=== PATIENT | female | born 1950 | race Caucasian/White ===

== ENCOUNTER → 2016-11-19 | Outpatient (REF) | payer MEDICARE, OTHER ==
[~2016-11-19] MED LIST: BENT10CA PO; EFFE150C PO; LASI20TA PO; LOSA25TA8 PO; MELO15TA4 PO; MIRA3350 PO; NORCOTAB PO; NUCY50TA9 PO; REST0.05 OP; RISP1TAB3 PO; SOMA350T PO; TOPA25TA10 PO
[2016-11-19 12:48] LABS: ALBUMIN 3.7 GM/DL (3.2-5.2); ALBUMIN/GLOBULIN RATIO 1.48 (1.00-1.93); BILIRUBIN,TOTAL 0.5 MG/DL (0.2-1.0); CREATININE FOR GFR 1.06 MG/DL (0.55-1.02); FREE T4 1.01 NG/DL (0.76-1.46); GLOMERULAR FILTRATION RATE 55.2 (>45); POTASSIUM SERUM 4.5 MEQ/L (3.5-5.1); TOTAL PROTEIN 6.2 GM/DL (6.4-8.2)
[2016-11-19 12:50] LABS: MEAN CORPUSCULAR HEMOGLOBIN 31.5 pg (27.0-33.0); MEAN CORPUSCULAR HGB CONC 34.2 g/dl (32.0-36.5); MEAN CORPUSCULAR VOLUME 92.1 fl (80.0-96.0); WHITE BLOOD COUNT 6.6 K/mm3 (4.0-10.0)
[2016-11-21 08:06] LABS: TOPIRAMATE LEVEL None Detected ug/mL (2.0-25.0)
== END ==
LOC: M SFHCCLAY 07:39
PROVIDERS: ATTEND Family Medicine
DX: Z00.00 Encounter for general adult medical examination without abnormal findings (principal); K21.0 Gastro-esophageal reflux disease with esophagitis; I10 Essential (primary) hypertension; F32.9 Major depressive disorder, single episode, unspecified; E78.00 Pure hypercholesterolemia, unspecified

== ENCOUNTER → 2017-01-27 | Outpatient (REF) | payer MEDICARE, OTHER | LOC: M SFHCCLAY 12:24 | PROVIDERS: ATTEND Family Medicine | DX: R25.2 Cramp and spasm (principal) ==

== ENCOUNTER → 2017-06-15 | Outpatient (CLI) | payer MEDICARE, OTHER ==
[~2017-06-15] MED LIST changes: +NUCY50TA6 PO; -NUCY50TA9 PO; +TOPA1TAB PO; -TOPA25TA10 PO
[2017-06-15 17:28] LABS: URIC ACID 4.7 MG/DL (2.6-6.0)
[2017-06-18 00:07] LABS: Lyme Disease IgG/IgM Antibodie <0.91 ISR (0.00-0.90); Lyme Disease IgM Ab Quantitati <0.80 index (0.00-0.79); SJOGREN'S ANTI SS-A <0.2 AI (0.0-0.9); SJOGREN'S ANTI SS-B <0.2 AI (0.0-0.9)
== END ==
LOC: M WUC 12:29
PROVIDERS: ATTEND Physician Assistant Surgical
DX: M25.542 Pain in joints of left hand (principal)

== ENCOUNTER → 2017-07-01 | Outpatient (REF) | payer MEDICARE, OTHER ==
[2017-07-01 14:17] LABS: FREE T4 1.02 NG/DL (0.76-1.46)
[2017-07-03 00:07] LABS: Lyme Disease IgG/IgM Antibodie <0.91 ISR (0.00-0.90); Lyme Disease IgM Ab Quantitati <0.80 index (0.00-0.79)
== END ==
LOC: M SFHCCLAY 10:19
PROVIDERS: ATTEND Family Medicine
DX: F32.9 Major depressive disorder, single episode, unspecified (principal); M19.90 Unspecified osteoarthritis, unspecified site

== ENCOUNTER → 2017-12-08 | Outpatient (CLI) | payer MEDICARE, OTHER | LOC: M CLY 10:26 | DX: M16.11 Unilateral primary osteoarthritis, right hip (principal); M25.751 Osteophyte, right hip; M70.61 Trochanteric bursitis, right hip | CPT/HCPCS: 73502; G0463 ==

== ENCOUNTER → 2017-12-22 | Outpatient (CLI) | payer MEDICARE, OTHER ==
[2017-12-22 13:34] LABS: BASO % 0.4 % (0.0-1.0); EOS # 0.1 10^3/uL (0.0-0.50); EOS % 2.1 % (0.0-3.0); HEMOGLOBIN 15.9 g/dl (12.0-16.0); IMMATURE GRANULOCYTE % 0.3 % (0-3.0); LYMPH # 0.7 10^3/uL (1.5-4.5); LYMPH % 10.4 % (24.0-44.0); MEAN CORPUSCULAR HEMOGLOBIN 32.3 pg (27.0-33.0); MEAN CORPUSCULAR HGB CONC 34.6 g/dl (32.0-36.5); MEAN CORPUSCULAR VOLUME 93.3 fl (80.0-96.0); MONO # 0.7 10^3/uL (0.0-0.8); MONO % 9.7 % (0.0-5.0); NEUTROPHILS # 5.2 10^3/uL (1.8-7.7); NEUTROPHILS % 77.1 % (36.0-66.0); PLATELET COUNT, AUTOMATED 180 10^3/uL (150-450); RED BLOOD COUNT 4.93 10^6/uL (4.00-5.40); RED CELL DISTRIBUTION WIDTH 11.9 % (11.5-14.5); WHITE BLOOD COUNT 6.7 10^3/uL (4.0-10.0)
[2017-12-22 14:24] LABS: ALBUMIN 3.9 GM/DL (3.2-5.2); ALBUMIN/GLOBULIN RATIO 1.26 (1.00-1.93); ALKALINE PHOSPHATASE 69 U/L (45-117); ALT/SGPT 32 U/L (12-78); ANION GAP 8 MEQ/L (8-16); AST/SGOT 29 U/L (7-37); BILIRUBIN,TOTAL 0.6 MG/DL (0.2-1.0); BLOOD UREA NITROGEN 18 MG/DL (7-18); CALCIUM LEVEL 9.1 MG/DL (8.8-10.2); CARBON DIOXIDE LEVEL 29 MEQ/L (21-32); CHLORIDE LEVEL 106 MEQ/L (98-107); CREATININE FOR GFR 0.82 MG/DL (0.55-1.30); GLOMERULAR FILTRATION RATE > 60.0 (>45); GLUCOSE, FASTING 98 MG/DL (70-100); POTASSIUM SERUM 3.9 MEQ/L (3.5-5.1); SODIUM LEVEL 143 MEQ/L (136-145)
== END ==
LOC: M ADAMS 10:17
DX: R11.2 Nausea with vomiting, unspecified (principal)
CPT/HCPCS: 80053

== ENCOUNTER → 2018-04-25 | Outpatient (REF) | payer MEDICARE, OTHER ==
[2018-04-29 00:12] LABS: G6PD2 4.79 x10E6/uL (3.77-5.28); G6PD3 302 (146-376)
== END ==
LOC: M LABDRWAD 09:02
DX: Z79.899 Other long term (current) drug therapy (principal)
CPT/HCPCS: 82955

== ENCOUNTER 2018-07-18 09:14 | Day surgery (SDC) | payer MEDICARE, OTHER ==
[2018-07-18] MEDS: NS 1,000 ML IV (07:00)
[~2018-07-18 09:14] MED LIST changes: -BENT10CA PO; -EFFE150C PO; -LASI20TA PO; -LOSA25TA8 PO; -MELO15TA4 PO; -MIRA3350 PO; -NORCOTAB PO; +NS 1,000 ML IV; -NUCY50TA6 PO; -REST0.05 OP; -RISP1TAB3 PO; -SOMA350T PO; -TOPA1TAB PO
[2018-07-18] MEDS ORDERED: LIDOCAINE 2% INJ 100 MG/5 ML SDV (FOR ANES.) As Ordered (10:52)
[2018-07-18] MEDS ORDERED: PROPOFOL 500 MG/50 ML VIAL As Ordered (10:52)
== END 2018-07-18 12:05 | disposition home or self-care (01) ==
LOC: M OPP 09:14
DX: Z12.11 Encounter for screening for malignant neoplasm of colon (principal); Z83.71 Family history of colonic polyps; K64.0 First degree hemorrhoids; I10 Essential (primary) hypertension; K58.9 Irritable bowel syndrome, unspecified; K21.9 Gastro-esophageal reflux disease without esophagitis; R12 Heartburn; M32.9 Systemic lupus erythematosus, unspecified; F41.9 Anxiety disorder, unspecified; F32.9 Major depressive disorder, single episode, unspecified; R56.9 Unspecified convulsions; Z97.8 Presence of other specified devices; Z78.0 Asymptomatic menopausal state; Z85.828 Personal history of other malignant neoplasm of skin; Z88.8 Allergy status to other drugs, medicaments and biological substances; Z88.1 Allergy status to other antibiotic agents; Z88.2 Allergy status to sulfonamides; Z88.0 Allergy status to penicillin; Z79.899 Other long term (current) drug therapy; Z80.3 Family history of malignant neoplasm of breast; Z87.891 Personal history of nicotine dependence; Z80.8 Family history of malignant neoplasm of other organs or systems
CPT/HCPCS: G0105

== ENCOUNTER → 2018-07-27 | Outpatient (CLI) | payer MEDICARE, OTHER | LOC: M EKG 13:13 | DX: G47.419 Narcolepsy without cataplexy (principal) | CPT/HCPCS: 93225 ==

== ENCOUNTER → 2018-08-08 | Outpatient (CLI) | payer MEDICARE, OTHER | LOC: M SLEEP 20:00 | DX: G47.30 Sleep apnea, unspecified (principal) | CPT/HCPCS: 95810 ==

== ENCOUNTER → 2018-08-11 | Outpatient (CLI) | payer OTHER, MEDICARE ==
[2018-08-12 10:44] LABS: RUBELLA IgG QUALITATIVE IMMUNE (IMMUNE)
[2018-08-13 08:11] LABS: MUMPS VIRUS IgG ANTIBODY 89.3 AU/mL (Immune >10.9)
[2018-08-13 08:11] LABS: RUBEOLA IgG ANTIBODY >300.0 AU/mL (Immune >29.9)
== END ==
LOC: M WUC 16:54
DX: Z02.1 Encounter for pre-employment examination (principal)
CPT/HCPCS: 86762

== ENCOUNTER → 2018-09-02 | Outpatient (REF) | payer MEDICARE, OTHER ==
[2018-09-02 19:34] LABS: APPEARANCE, URINE HAZY (CLEAR); BACTERIA, URINE AUTO NEGATIVE (NEGATIVE); BILIRUBIN, URINE AUTO NEGATIVE (NEGATIVE); BLOOD, URINE BLOOD NEGATIVE (NEGATIVE); COLOR, URINE YELLOW (YELLOW); GLUCOSE, URINE (UA) AUTO NEGATIVE (NEGATIVE); KETONE, URINE AUTO NEGATIVE (NEGATIVE); LEUKOCYTE ESTERASE, URINE AUTO NEGATIVE (NEGATIVE); MUCUS, URINE SMALL (NEGATIVE); NITRITE, URINE AUTO NEGATIVE (NEGATIVE); PROTEIN, URINE AUTO NEGATIVE (NEGATIVE); RBC, URINE AUTO 4 /HPF (0-3); SPECIFIC GRAVITY URINE AUTO 1.017 (1.002-1.035); SQUAMOUS EPITHELIAL CELL UR AU 0 /HPF (0-6); UROBILINOGEN, URINE AUTO 0.2 mg/dL (0.0-2.0); WBC, URINE AUTO 5 /HPF (0-3)
== END ==
LOC: M SFHCADAM 13:27
DX: R32 Unspecified urinary incontinence (principal); Z23 Encounter for immunization
CPT/HCPCS: 81001

== ENCOUNTER → 2018-09-17 | Outpatient (CLI) | payer MEDICARE, OTHER | LOC: M SLEEP 19:48 | DX: G47.33 Obstructive sleep apnea (adult) (pediatric) (principal) | CPT/HCPCS: 95811 ==

== ENCOUNTER → 2018-11-03 | Outpatient (REF) | payer MEDICARE, OTHER ==
[~2018-11-03] MED LIST changes: +BENT10CA PO; +CYMB1CAP5 PO; +EFFE150C2 PO; +FISH7.5C PO; +GABA-843 PO; +LASI20TA3 PO; +LOSA25TA14 PO; +MAGN500C PO; +MELO15TA28 PO; +MIRA3350 PO; +MULT1TAB10 PO; +NORCOTAB PO; -NS 1,000 ML IV; +NUCY50TA19 PO; +PREV1CAP PO; +PROZ40CA PO; +REST0.05 OP; +RISP1TAB3 PO; +SOMA350T PO; +TOPA1TAB PO; +VITA10002 PO; +VITA100067 PO
[2018-11-03 19:57] LABS: BASO # 0.1 10^3/uL (0.0-0.2); BASO % 1.1 % (0.0-1.0); EOS # 0.1 10^3/uL (0.0-0.50); EOS % 1.6 % (0.0-3.0); HEMATOCRIT 45.5 % (36.0-47.0); MONO # 0.7 10^3/uL (0.0-0.8); NEUTROPHILS # 3.8 10^3/uL (1.8-7.7); NEUTROPHILS % 65.9 % (36.0-66.0); PLATELET COUNT, AUTOMATED 238 10^3/uL (150-450); RED BLOOD COUNT 4.84 10^6/uL (4.00-5.40); WHITE BLOOD COUNT 5.7 10^3/uL (4.0-10.0)
[2018-11-03 19:59] LABS: BLOOD UREA NITROGEN 15 MG/DL (7-18); CARBON DIOXIDE LEVEL 30 MEQ/L (21-32); CHLORIDE LEVEL 104 MEQ/L (98-107); CREATININE FOR GFR 0.97 MG/DL (0.55-1.30); GLOMERULAR FILTRATION RATE > 60.0 (>45); GLUCOSE, FASTING 79 MG/DL (70-100); POTASSIUM SERUM 4.8 MEQ/L (3.5-5.1); SODIUM LEVEL 141 MEQ/L (136-145)
== END ==
LOC: M LABDRWAD 19:19 → M LAB REF 19:19
PROVIDERS: ATTEND Physician Assistant
DX: R53.83 Other fatigue (principal)

== ENCOUNTER → 2019-01-14 | Outpatient (CLI) | payer MEDICARE, OTHER ==
--- NOTE | 2019-01-14 12:34 | REP ---
Clinical: Left knee pain. Technique: AP, lateral, bilateral oblique and sunrise views of the left knee. Findings: Degenerative changes include cortical irregularity to the femoral condyles and chondrocalcinosis. Subtle spurring along the patellar margin is also appreciated. No acute fracture dislocation. No effusion. Impression: Moderate tricompartmental degenerative changes. Electronically Signed by Jose Antonio Donato MD 01/14/2019 12:26 P
== END ==
LOC: M ADAMS 12:07
PROVIDERS: ATTEND Physician Assistant
DX: M17.12 Unilateral primary osteoarthritis, left knee (principal)

== ENCOUNTER → 2019-01-18 | Outpatient (CLI) | payer MEDICARE, OTHER ==
[~2019-01-18] MED LIST changes: +HYDR-3715 PO; -NORCOTAB PO
--- NOTE | 2019-01-18 13:36 | REP ---
SOFT-TISSUE ULTRASOUND LEFT POSTERIOR POPLITEAL SOFT TISSUES: HISTORY: Posterior knee pain times 1 week. FINDINGS: Scanning of the posterior popliteal soft tissue show no evidence of abnormal fluid collection, aneurysm, mass, or adenopathy. Popliteal vein is patent. IMPRESSION: Negative posterior popliteal soft tissue ultrasound. Electronically Signed by Román Arias MD 01/18/2019 02:56 P
== END ==
LOC: M RAD 11:06
PROVIDERS: ATTEND Physician Assistant
DX: M25.562 Pain in left knee (principal)

== ENCOUNTER → 2019-02-27 | Outpatient (REF) | payer MEDICARE, OTHER ==
[2019-02-27 13:38] LABS: CALCIUM LEVEL 9.1 MG/DL (8.8-10.2); CREATININE FOR GFR 1.05 MG/DL (0.55-1.30); GLOMERULAR FILTRATION RATE 55.5 (>45); POTASSIUM SERUM 4.4 MEQ/L (3.5-5.1)
== END ==
LOC: M LABDRWAD 12:19
PROVIDERS: ATTEND Internal Medicine Cardiovascular Disease
DX: I10 Essential (primary) hypertension (principal)

== ENCOUNTER → 2019-05-26 | Outpatient (REF) | payer MEDICARE, OTHER ==
[~2019-05-26] MED LIST changes: +CYAN100049 PO; -VITA10002 PO
[2019-05-26 13:04] LABS: CALCIUM LEVEL 9.4 MG/DL (8.8-10.2); CREATININE FOR GFR 1.08 MG/DL (0.55-1.30); GLOMERULAR FILTRATION RATE 53.7 (>45); MAGNESIUM LEVEL 2.1 MG/DL (1.8-2.4)
== END ==
LOC: M SFHCADAM 09:20
PROVIDERS: ATTEND Physician Assistant
DX: N18.3 Chronic kidney disease, stage 3 (moderate) (principal); R60.9 Edema, unspecified
CPT/HCPCS: 80048; 83735; G0463

== ENCOUNTER → 2019-07-12 | Outpatient (CLI) | payer MEDICARE, OTHER ==
--- NOTE | 2019-07-12 10:55 | REP ---
CT BRAIN WITHOUT CONTRAST: HISTORY: Syncope. Collapse. Comparison MRI study of the brain is from May 25, 2008. CT FINDINGS: The digital lateral band director and bone window settings demonstrate mild hyperostosis frontalis interna which is a normal variant. The bony calvarium is intact. No significant vascular calcification is seen. On soft tissue window settings, the lateral, third and fourth ventricles are normal in size and position. There is no evidence of intracranial hemorrhage. No infarct or extra-axial fluid collection is seen. No mass lesion is observed. There are subtle foci of subcortical and periventricular white matter low density bilaterally. These are similar in distribution to the T2 hyperintense foci seen at the time of the 2008 MRI study. They are suggestive of demyelinating foci. There is no acute intracranial lesion. IMPRESSION: No acute intracranial abnormality. Subtle bilateral subcortical and periventricular white matter low density foci correlating with the prior MRI study and suggestive of demyelinating disease. Otherwise negative CT study of the brain. Electronically Signed by Román Arias MD 07/12/2019 11:13 A
--- NOTE | 2019-07-12 11:21 | REP ---
Bilateral carotid artery duplex ultrasound: Peak flow velocity analysis: RIGHT LEFT ICA Peak flow velocity cm/sec 83.5 97.1 ICA Diastolic flow velocity cm/sec 21.1 24.7 ICA/CCA Ratio 0.69 0.80 ECA Peak flow velocity cm/sec 104 64.5 CCA Peak flow velocity cm/sec 121 122 There is minimal atheromatous plaque in the bulbs bilaterally. The peak flow velocities are normal bilaterally. There is less than 50% luminal narrowing bilaterally. There is no stenosis on the right on the left. There is antegrade flow in the vertebral arteries bilaterally. Bilateral thyroid complex cysts are incidentally noted. Follow-up thyroid ultrasound might be considered. Impression: There is no stenosis on the right on the left. Consider follow-up thyroid ultrasound as discussed. Electronically Signed by Manuel Bae MD 07/12/2019 11:12 A
== END ==
LOC: M RAD 10:02
PROVIDERS: ATTEND Psychiatry & Neurology Neurology
DX: R55 Syncope and collapse (principal); G40.89 Other seizures; E04.2 Nontoxic multinodular goiter

== ENCOUNTER → 2019-07-26 | Outpatient (REF) | payer MEDICARE, OTHER ==
[2019-07-26 19:32] LABS: APPEARANCE, URINE CLEAR (CLEAR); BACTERIA, URINE AUTO NEGATIVE (NEGATIVE); BILIRUBIN, URINE AUTO NEGATIVE (NEGATIVE); BLOOD, URINE BLOOD NEGATIVE (NEGATIVE); COLOR, URINE STRAW (YELLOW); GLUCOSE, URINE (UA) AUTO NEGATIVE (NEGATIVE); KETONE, URINE AUTO NEGATIVE (NEGATIVE); LEUKOCYTE ESTERASE, URINE AUTO NEGATIVE (NEGATIVE); NITRITE, URINE AUTO NEGATIVE (NEGATIVE); PROTEIN, URINE AUTO NEGATIVE (NEGATIVE); RBC, URINE AUTO 0 /HPF (0-3); SPECIFIC GRAVITY URINE AUTO 1.006 (1.002-1.035); SQUAMOUS EPITHELIAL CELL UR AU 0 /HPF (0-6); UROBILINOGEN, URINE AUTO 0.2 mg/dL (0.0-2.0); WBC, URINE AUTO 0 /HPF (0-3)
[2019-07-26 19:34] LABS: HEMATOCRIT 40.1 % (36.0-47.0); HEMOGLOBIN 13.1 g/dl (12.0-15.5); MEAN CORPUSCULAR HEMOGLOBIN 31.6 pg (27.0-33.0); MEAN CORPUSCULAR HGB CONC 32.7 g/dl (32.0-36.5); MEAN CORPUSCULAR VOLUME 96.9 fl (80.0-96.0); PLATELET COUNT, AUTOMATED 218 10^3/uL (150-450); RED BLOOD COUNT 4.14 10^6/uL (4.00-5.40); WHITE BLOOD COUNT 4.9 10^3/uL (4.0-10.0)
[2019-07-26 20:11] LABS: ALBUMIN 3.9 GM/DL (3.2-5.2); BILIRUBIN,TOTAL 0.4 MG/DL (0.2-1.0); CALCIUM LEVEL 8.9 MG/DL (8.8-10.2); CREATININE FOR GFR 1.24 MG/DL (0.55-1.30); FREE T4 0.92 NG/DL (0.76-1.46); GLOMERULAR FILTRATION RATE 45.8 (>45); POTASSIUM SERUM 4.3 MEQ/L (3.5-5.1); THYROID STIMULATING HORMONE 0.885 uIU/ML (0.358-3.740); TOTAL PROTEIN 6.7 GM/DL (6.4-8.2)
== END ==
LOC: M SFHCADAM 15:27
PROVIDERS: ATTEND Physician Assistant
DX: N18.3 Chronic kidney disease, stage 3 (moderate) (principal); K21.0 Gastro-esophageal reflux disease with esophagitis; I12.9 Hypertensive chronic kidney disease with stage 1 through stage 4 chronic kidney disease, or unspecified chronic kidney disease; R60.0 Localized edema
CPT/HCPCS: 80053; 81001; 84439; 84443; 85027; G0463

== ENCOUNTER → 2019-11-03 | Outpatient (REF) | payer MEDICARE, OTHER | LOC: M LAB REF 09:26 | PROVIDERS: ATTEND Nurse Practitioner Family | DX: R30.0 Dysuria (principal) ==

== ENCOUNTER → 2020-02-09 | Outpatient (REF) | payer MEDICARE, OTHER ==
[2020-02-09 13:03] LABS: HEMATOCRIT 39.5 % (36.0-47.0); HEMOGLOBIN 13.2 g/dl (12.0-15.5); MEAN CORPUSCULAR HEMOGLOBIN 30.9 pg (27.0-33.0); MEAN CORPUSCULAR HGB CONC 33.4 g/dl (32.0-36.5); MEAN CORPUSCULAR VOLUME 92.5 fl (80.0-96.0); PLATELET COUNT, AUTOMATED 211 10^3/uL (150-450); RED BLOOD COUNT 4.27 10^6/uL (4.00-5.40); WHITE BLOOD COUNT 3.8 10^3/uL (4.0-10.0)
[2020-02-09 13:47] LABS: ALBUMIN 3.7 GM/DL (3.2-5.2); BILIRUBIN,TOTAL 0.4 MG/DL (0.2-1.0); CALCIUM LEVEL 9.1 MG/DL (8.8-10.2); CHOLESTEROL RISK RATIO 2.035 (<5); CREATININE FOR GFR 1.21 MG/DL (0.55-1.30); POTASSIUM SERUM 4.4 MEQ/L (3.5-5.1); TOTAL PROTEIN 6.4 GM/DL (6.4-8.2)
== END ==
LOC: M SFHCADAM 08:44
PROVIDERS: ATTEND Physician Assistant
DX: I12.9 Hypertensive chronic kidney disease with stage 1 through stage 4 chronic kidney disease, or unspecified chronic kidney disease (principal); R60.9 Edema, unspecified; N18.3 Chronic kidney disease, stage 3 (moderate); E78.00 Pure hypercholesterolemia, unspecified

== ENCOUNTER → 2020-04-05 | Outpatient (REF) | payer MEDICARE, OTHER ==
[2020-04-05 13:37] LABS: CALCIUM LEVEL 9.1 MG/DL (8.8-10.2); CREATININE FOR GFR 1.08 MG/DL (0.55-1.30); GLOMERULAR FILTRATION RATE 53.5 (>45); POTASSIUM SERUM 3.9 MEQ/L (3.5-5.1)
== END ==
LOC: M LABDRWAD 12:35
PROVIDERS: ATTEND Physical Medicine & Rehabilitation
DX: Z01.818 Encounter for other preprocedural examination (principal); I10 Essential (primary) hypertension; Z79.899 Other long term (current) drug therapy

== ENCOUNTER → 2020-04-06 | Outpatient (CLI) | payer MEDICARE, OTHER | LOC: M LABSMTC 10:05 | PROVIDERS: ATTEND Orthopaedic Surgery | DX: Z11.59 Encounter for screening for other viral diseases (principal) ==

== ENCOUNTER → 2021-04-07 | Outpatient (REF) | payer MEDICARE, OTHER ==
[~2021-04-07] MED LIST changes: +GABA-282 PO; -GABA-843 PO; +RISP-8 PO; -RISP1TAB3 PO
[2021-04-07 12:56] LABS: HEMATOCRIT 43.1 % (36.0-47.0); HEMOGLOBIN 13.9 g/dl (12.0-15.5); MEAN CORPUSCULAR HEMOGLOBIN 30.8 pg (27.0-33.0); MEAN CORPUSCULAR HGB CONC 32.3 g/dl (32.0-36.5); MEAN CORPUSCULAR VOLUME 95.6 fl (80.0-96.0); PLATELET COUNT, AUTOMATED 247 10^3/uL (150-450); RED BLOOD COUNT 4.51 10^6/uL (4.00-5.40); WHITE BLOOD COUNT 5.8 10^3/uL (4.0-10.0)
[2021-04-07 13:30] LABS: ALBUMIN 3.9 GM/DL (3.2-5.2); BILIRUBIN,TOTAL 0.3 MG/DL (0.2-1.0); CALCIUM LEVEL 9.7 MG/DL (8.8-10.2); CHOLESTEROL RISK RATIO 2.24 (<5); CREATININE FOR GFR 1.17 MG/DL (0.55-1.30); FREE T4 1.09 NG/DL (0.76-1.46); GLOMERULAR FILTRATION RATE 48.7 (>39); POTASSIUM SERUM 5.1 MEQ/L (3.5-5.1); THYROID STIMULATING HORMONE 0.967 uIU/ML (0.358-3.740); TOTAL PROTEIN 6.6 GM/DL (6.4-8.2)
[2021-04-07 13:32] LABS: CREATININE, URINE 18.4 MG/DL; MALB URINE SIEMENS < 5.0 MG/L; MAU/CREAT RATIO 27.1 MCG/MG (0.0-30.0)
== END ==
LOC: M SFHCADAM 08:09
PROVIDERS: ATTEND Physician Assistant
DX: E78.00 Pure hypercholesterolemia, unspecified (principal); I10 Essential (primary) hypertension; R60.9 Edema, unspecified; J30.89 Other allergic rhinitis

== ENCOUNTER → 2021-07-04 | Outpatient (REF) | payer MEDICARE, OTHER ==
[2021-07-04 14:26] LABS: CALCIUM LEVEL 8.8 MG/DL (8.8-10.2); CREATININE FOR GFR 1.12 MG/DL (0.55-1.30); GLOMERULAR FILTRATION RATE 51.2 (>39)
== END ==
LOC: M SFHCADAM 07:57
PROVIDERS: ATTEND Physician Assistant
DX: R10.31 Right lower quadrant pain (principal)

== ENCOUNTER → 2021-07-16 | Outpatient (CLI) | payer MEDICARE, OTHER ==
[~2021-07-16] MED LIST changes: +GASTROGRAFIN SOLUTION 30ML (Q9963) As Ordered ONE; +ISOVUE-370 76% 100ML VIAL As Ordered ONE
--- NOTE | 2021-07-16 15:34 | REP ---
INDICATION: RLQ PAIN. COMPARISON: None. TECHNIQUE: Standard helical technique before and after the intravenous administration of 100 cc Isovue 370 and oral bowel preparatory contrast administration FINDINGS: The lung bases are clear. The pre contrast enhanced portion of the examination shows a round low-density lesion in the inferior pole of the left kidney which measures 2.7 cm and has near water density Hounsfield unit readings. There are no choleliths. There are no right nephroliths. There is a single 5 mm size nonobstructing left nephrolith. Hepatic and splenic densities are within normal limits. Incidental hepatic cysts are identified. The contrast-enhanced portion examination shows no enhancing hepatic or renal abnormalities. The spleen, pancreas, and adrenal glands are within normal limits. There is some benign nodular thickening of each adrenal gland. The abdominal aorta and para-aortic regions are within normal limits. The bowel loops and the mesenteries are within normal limits. There is no evidence of a mass or adenopathy. There is no free fluid or free air. Bone window technique throughout the examination shows the osseous structures to be within normal limits for the patient's age. The tip of the dorsal column stimulator was not imaged. IMPRESSION: Hepatic cysts and left renal cyst as described above. There is no evidence of an acute abnormality. <Electronically signed by Chris Salgado > 07/16/21 0243
== END ==
LOC: M RAD 13:04
PROVIDERS: ATTEND Physician Assistant
DX: N28.1 Cyst of kidney, acquired (principal); K76.89 Other specified diseases of liver
CPT/HCPCS: 74178; Q9963; Q9967

== ENCOUNTER → 2022-03-04 | Outpatient (CLI) | payer MEDICARE, OTHER ==
[~2022-03-04] MED LIST changes: +ARIP1TAB43 PO; +BAYE81TA10 PO; +CLON0.25 PO; +CURC1POW2 PO; +DICY10CA13 PO; +FLUTISP; +FURO20TA2 PO; -GASTROGRAFIN SOLUTION 30ML (Q9963) As Ordered ONE; +HYDR-3363 PO; +HYDR200T3 PO; -ISOVUE-370 76% 100ML VIAL As Ordered ONE; +LANS30CA93 PO; +LOSA25TA13 PO; -LOSA25TA14 PO; +LOSA50TA28 PO; +MIRT-10 PO; +PROB1CAP10 PO; +RA M500C PO; +VENL150C43 PO; +VENL75CA47 PO; +VITA-183 PO; +VITA100065 PO; +VITMTA PO
== END ==
LOC: M LABSMTC 09:52
PROVIDERS: ATTEND Anesthesiology
DX: Z11.52 Encounter for screening for COVID-19 (principal); Z20.822 Contact with and (suspected) exposure to COVID-19

== ENCOUNTER 2022-03-09 13:50 | Day surgery (SDC) | payer MEDICARE, OTHER ==
[~2022-03-09] VITALS: Ht 162.6 cm; Wt 93.4 kg
[~2022-03-09 13:50] MED LIST changes: +VANCOMYCIN HCL 1,000 MG, VIAL MATE ADAPTER 1 EACH in NS 250 ML IV SCH
[2022-03-09] MEDS ORDERED: MIDAZOLAM INJ 2MG/2ML VIAL (J2250 PER 1MG) As Ordered ONE (16:00)
[2022-03-09] MEDS ORDERED: propofoL 200 MG/20 ML VIAL As Ordered ONE (16:01)
[2022-03-09] MEDS ORDERED: fentaNYL 100 MCG/2 ML INJECTION As Ordered ONE (16:01)
[2022-03-09] MEDS ORDERED: LIDOCAINE 2% 100MG/5ML SDV (FOR ANES.) As Ordered ONE (16:01)
[2022-03-09] MEDS ORDERED: LIDOCAINE 1% MDV 20ML VIAL As Ordered ONE (16:24)
[2022-03-09] MEDS ORDERED: MUPIROCIN 2% OINT 22 GM TUBE As Ordered ONE (17:10)
[2022-03-09 17:55] VITALS: BP 160/65
== END 2022-03-09 18:05 | disposition home or self-care (01) ==
LOC: M SDC 13:50
PROVIDERS: ATTEND Internal Medicine Cardiovascular Disease
DX: Z45.09 Encounter for adjustment and management of other cardiac device (principal); I10 Essential (primary) hypertension; K58.8 Other irritable bowel syndrome; K21.9 Gastro-esophageal reflux disease without esophagitis; G40.909 Epilepsy, unspecified, not intractable, without status epilepticus; G47.33 Obstructive sleep apnea (adult) (pediatric); M32.9 Systemic lupus erythematosus, unspecified; F32.A Depression, unspecified; F41.9 Anxiety disorder, unspecified; Z79.899 Other long term (current) drug therapy; Z87.891 Personal history of nicotine dependence; Z88.0 Allergy status to penicillin; Z88.2 Allergy status to sulfonamides; Z88.1 Allergy status to other antibiotic agents; Z88.8 Allergy status to other drugs, medicaments and biological substances
CPT/HCPCS: 33286; J2250; J3010; J3370

== ENCOUNTER 2022-06-21 13:44 | Emergency (ER) | payer MEDICARE, OTHER ==
[~2022-06-21] VITALS: Ht 165.1 cm; Wt 90.9 kg
[~2022-06-21 13:44] MED LIST changes: +FISH10005 PO; -FISH7.5C PO; -VANCOMYCIN HCL 1,000 MG, VIAL MATE ADAPTER 1 EACH in NS 250 ML IV SCH
[2022-06-21 13:45] VITALS: BP 137/80
[2022-06-21] MEDS ORDERED: predniSONE 20 MG TAB PO ONE (17:35)
[2022-06-21] MEDS ORDERED: BACL10TA2 PO (17:38)
[2022-06-21] MEDS ORDERED: PRED20TA PO (17:38)
== END 2022-06-21 18:09 | disposition home or self-care (01) ==
LOC: M ED 13:44
DX: M16.12 Unilateral primary osteoarthritis, left hip (principal); I10 Essential (primary) hypertension; F32.A Depression, unspecified; F41.9 Anxiety disorder, unspecified; G47.33 Obstructive sleep apnea (adult) (pediatric); R56.9 Unspecified convulsions; E66.8 Other obesity; Z88.0 Allergy status to penicillin; Z88.1 Allergy status to other antibiotic agents; Z88.2 Allergy status to sulfonamides; Z88.4 Allergy status to anesthetic agent; Z88.8 Allergy status to other drugs, medicaments and biological substances; Z79.899 Other long term (current) drug therapy; Z79.82 Long term (current) use of aspirin
CPT/HCPCS: 73502; 99282; J7512

== ENCOUNTER → 2022-06-30 | Outpatient (REF) | payer MEDICARE, OTHER ==
[~2022-06-30] MED LIST changes: +BACL10TA2 PO; +PRED20TA PO
[2022-06-30 13:20] LABS: HEMOGLOBIN 13.4 g/dl (12.0-15.5); MEAN CORPUSCULAR HEMOGLOBIN 30.9 pg (27.0-33.0); MEAN CORPUSCULAR HGB CONC 31.9 g/dl (32.0-36.5); MEAN CORPUSCULAR VOLUME 96.8 fl (80.0-96.0); PLATELET COUNT, AUTOMATED 257 10^3/uL (150-450); RED BLOOD COUNT 4.34 10^6/uL (4.00-5.40); WHITE BLOOD COUNT 6.6 10^3/uL (4.0-10.0)
[2022-06-30 13:44] LABS: HEMOGLOBIN A1c 5.1 %
[2022-06-30 14:16] LABS: ALBUMIN 3.6 GM/DL (3.2-5.2); BILIRUBIN,TOTAL 0.4 MG/DL (0.2-1.0); CALCIUM LEVEL 9.2 MG/DL (8.8-10.2); CHOLESTEROL RISK RATIO 2.148 (<5); CREATININE FOR GFR 1.72 MG/DL (0.55-1.30); FREE T4 1.19 NG/DL (0.76-1.46); GLOMERULAR FILTRATION RATE 31.1 (>39); POTASSIUM SERUM 4.2 MEQ/L (3.5-5.1); THYROID STIMULATING HORMONE 0.743 uIU/ML (0.358-3.740); TOTAL PROTEIN 6.3 GM/DL (6.4-8.2)
[2022-06-30 15:22] LABS: TOTAL 25(OH) VITAMIN D 47.1 NG/ML (30.0-100.0)
== END ==
LOC: M SFHCADAM 08:01
PROVIDERS: ATTEND Physician Assistant
DX: I10 Essential (primary) hypertension (principal); R60.9 Edema, unspecified; E78.00 Pure hypercholesterolemia, unspecified; Z13.1 Encounter for screening for diabetes mellitus; M32.9 Systemic lupus erythematosus, unspecified; Z79.899 Other long term (current) drug therapy

== ENCOUNTER → 2022-07-13 | Outpatient (CLI) | payer MEDICARE, OTHER | LOC: M WHC 12:19 | PROVIDERS: ATTEND Physician Assistant | DX: I10 Essential (primary) hypertension (principal); N17.9 Acute kidney failure, unspecified ==

== ENCOUNTER → 2022-07-17 | Outpatient (REF) | payer MEDICARE, OTHER ==
[2022-07-17 13:13] LABS: APPEARANCE, URINE MANUAL CLEAR (CLEAR); COLOR, URINE MANUAL LT YELLOW (YELLOW)
[2022-07-17 13:14] LABS: BILIRUBIN, URINE MANUAL NEGATIVE (NEGATIVE); BLOOD URINE MANUAL NEGATIVE (NEGATIVE); GLUCOSE, URINE (UA) MANUAL NEGATIVE (NEGATIVE); KETONE, URINE MANUAL NEGATIVE (NEGATIVE); LEUKOCYTE ESTERASE, URINE MAN NEGATIVE (NEGATIVE); NITRITE, URINE MANUAL NEGATIVE (NEGATIVE); PROTEIN, URINE MANUAL NEGATIVE (NEGATIVE); UROBILINOGEN, URINE MANUAL NORMAL (NORMAL)
[2022-07-17 13:54] LABS: ALBUMIN 3.8 GM/DL (3.2-5.2); BILIRUBIN,TOTAL 0.4 MG/DL (0.2-1.0); CALCIUM LEVEL 9.3 MG/DL (8.8-10.2); CREATININE FOR GFR 1.33 MG/DL (0.55-1.30); GLOMERULAR FILTRATION RATE 41.9 (>39); POTASSIUM SERUM 4.7 MEQ/L (3.5-5.1); TOTAL PROTEIN 6.6 GM/DL (6.4-8.2)
[2022-07-17 13:58] LABS: CREATININE, URINE 19.1 MG/DL; MALB URINE SIEMENS < 5.0 MG/L; MAU/CREAT RATIO 26.1 MCG/MG (0.0-30.0)
== END ==
LOC: M SFHCADAM 08:05
PROVIDERS: ATTEND Physician Assistant
DX: N17.9 Acute kidney failure, unspecified (principal); I10 Essential (primary) hypertension

== ENCOUNTER → 2022-07-24 | Outpatient (CLI) | payer MEDICARE, OTHER | LOC: M ADAMS 07:54 | PROVIDERS: ATTEND Physician Assistant | DX: M11.262 Other chondrocalcinosis, left knee (principal); M17.12 Unilateral primary osteoarthritis, left knee ==

== ENCOUNTER → 2022-08-28 | Outpatient (CLI) | payer MEDICARE, OTHER | LOC: M ADAMS 10:00 | PROVIDERS: ATTEND Nurse Practitioner Family | DX: M25.551 Pain in right hip (principal) ==

== ENCOUNTER → 2022-09-22 | Outpatient (CLI) | payer MEDICARE, OTHER | LOC: M SOG 07:58 | PROVIDERS: ATTEND Orthopaedic Surgery | DX: M17.12 Unilateral primary osteoarthritis, left knee (principal); M25.561 Pain in right knee ==

== ENCOUNTER → 2022-11-03 | Outpatient (REF) | payer MEDICARE, OTHER ==
[2022-11-03 13:41] LABS: HEMATOCRIT 40.4 % (36.0-47.0); MEAN CORPUSCULAR HEMOGLOBIN 30.9 pg (27.0-33.0); MEAN CORPUSCULAR HGB CONC 32.2 g/dl (32.0-36.5); PLATELET COUNT, AUTOMATED 194 10^3/uL (150-450); RED BLOOD COUNT 4.21 10^6/uL (4.00-5.40); WHITE BLOOD COUNT 4.2 10^3/uL (4.0-10.0)
[2022-11-03 14:03] LABS: CALCIUM LEVEL 9.3 MG/DL (8.3-10.6); CREATININE FOR GFR 1.6 MG/DL (0.55-1.30); GLOMERULAR FILTRATION RATE 33.7 (>39); POTASSIUM SERUM 4.5 MMOL/L (3.5-5.1)
== END ==
LOC: M SFHCADAM 08:04
PROVIDERS: ATTEND Physician Assistant
DX: N18.31 Chronic kidney disease, stage 3a (principal); Z79.899 Other long term (current) drug therapy

== ENCOUNTER → 2022-11-24 | Outpatient (REF) | payer MEDICARE, OTHER ==
[2022-11-24 13:20] LABS: CREATININE FOR GFR 1.32 MG/DL (0.55-1.30)
[2022-11-24 13:21] LABS: GLOMERULAR FILTRATION RATE 42.1 (>39); POTASSIUM SERUM 4.8 MMOL/L (3.5-5.1)
== END ==
LOC: M SFHCADAM 08:15
PROVIDERS: ATTEND Physician Assistant
DX: R79.89 Other specified abnormal findings of blood chemistry (principal)

== ENCOUNTER → 2023-01-28 | Outpatient (REF) | payer MEDICARE, OTHER ==
[~2023-01-28] MED LIST changes: +FLUT50SP17; -FLUTISP
[2023-01-28 14:58] LABS: HEMOGLOBIN 12.1 g/dl (12.0-15.5); MEAN CORPUSCULAR HEMOGLOBIN 31.5 pg (27.0-33.0); MEAN CORPUSCULAR HGB CONC 31.8 g/dl (32.0-36.5); PLATELET COUNT, AUTOMATED 215 10^3/uL (150-450); RED BLOOD COUNT 3.84 10^6/uL (4.00-5.40); WHITE BLOOD COUNT 9.4 10^3/uL (4.0-10.0)
[2023-01-28 15:00] LABS: ALBUMIN 3.8 G/DL (3.2-5.2); BILIRUBIN,TOTAL 0.4 MG/DL (0.3-1.2); CALCIUM LEVEL 9.6 MG/DL (8.3-10.6); CREATININE FOR GFR 1.25 MG/DL (0.55-1.30); GLOMERULAR FILTRATION RATE 44.8 (>39); POTASSIUM SERUM 3.9 MMOL/L (3.5-5.1); TOTAL PROTEIN 6.4 G/DL (5.7-8.2)
== END ==
LOC: M SFHCADAM 10:44
PROVIDERS: ATTEND Physician Assistant
DX: D64.9 Anemia, unspecified (principal); M32.9 Systemic lupus erythematosus, unspecified; S06.5X0D Traumatic subdural hemorrhage without loss of consciousness, subsequent encounter; I10 Essential (primary) hypertension

== ENCOUNTER → 2023-02-02 | Outpatient (CLI) | payer MEDICARE, OTHER | LOC: M PLAIMG 09:56 | PROVIDERS: ATTEND Physician Assistant | DX: I60.9 Nontraumatic subarachnoid hemorrhage, unspecified (principal); I63.81 Other cerebral infarction due to occlusion or stenosis of small artery; S06.5X0D Traumatic subdural hemorrhage without loss of consciousness, subsequent encounter ==

== ENCOUNTER → 2023-06-04 | Outpatient (CLI) | payer MEDICARE, OTHER ==
[~2023-06-04] MED LIST changes: +DICY-61 PO; -DICY10CA13 PO; -HYDR200T3 PO; +HYDR200T46 PO
== END ==
LOC: M WUC 12:18
PROVIDERS: ATTEND Nurse Practitioner Family
DX: M25.531 Pain in right wrist (principal); M79.641 Pain in right hand

== ENCOUNTER → 2023-06-17 | Outpatient (CLI) | payer MEDICARE, OTHER | LOC: M SOG 10:21 | PROVIDERS: ATTEND Orthopaedic Surgery | DX: M25.562 Pain in left knee (principal); M25.561 Pain in right knee; M17.0 Bilateral primary osteoarthritis of knee; M11.261 Other chondrocalcinosis, right knee; M11.262 Other chondrocalcinosis, left knee ==

== ENCOUNTER → 2023-07-09 | Outpatient (CLI) | payer MEDICARE, OTHER ==
[2023-07-09 10:43] LABS: HEMATOCRIT 40.9 % (36.0-47.0); HEMOGLOBIN 13.6 g/dl (12.0-15.5); MEAN CORPUSCULAR HEMOGLOBIN 31.2 pg (27.0-33.0); MEAN CORPUSCULAR HGB CONC 33.3 g/dl (32.0-36.5); MEAN CORPUSCULAR VOLUME 93.8 fl (80.0-96.0); PLATELET COUNT, AUTOMATED 196 10^3/uL (150-450); RED BLOOD COUNT 4.36 10^6/uL (4.00-5.40); WHITE BLOOD COUNT 5.3 10^3/uL (4.0-10.0)
[2023-07-09 11:03] LABS: HEMOGLOBIN A1c 4.5 % (4.0-6.0)
[2023-07-09 11:05] LABS: MAU/CREAT RATIO 12.9 MCG/MG (0.0-30.0)
[2023-07-09 11:06] LABS: ALBUMIN 4.1 G/DL (3.2-5.2); BILIRUBIN,TOTAL 0.5 MG/DL (0.3-1.2); CALCIUM LEVEL 9.4 MG/DL (8.3-10.6); CHOLESTEROL RISK RATIO 1.88 (<5); CREATININE FOR GFR 1.22 MG/DL (0.55-1.30); GLOMERULAR FILTRATION RATE 46.1 (>39); HDL CHOLESTEROL 90.8 MG/DL (>40); LDL CHOLESTEROL 70.4 MG/DL (<100); NON-HDL-C 80.2 MG/DL; POTASSIUM SERUM 4.1 MMOL/L (3.5-5.1); TOTAL PROTEIN 6.6 G/DL (5.7-8.2)
[2023-07-09 11:08] LABS: FREE T4 1.24 NG/DL (0.89-1.76); THYROID STIMULATING HORMONE 1.827 uIU/ML (0.55-4.78)
== END ==
LOC: M WUC 08:26
PROVIDERS: ATTEND Physician Assistant
DX: N18.31 Chronic kidney disease, stage 3a (principal); I12.9 Hypertensive chronic kidney disease with stage 1 through stage 4 chronic kidney disease, or unspecified chronic kidney disease; E78.00 Pure hypercholesterolemia, unspecified; R60.9 Edema, unspecified

== ENCOUNTER → 2023-07-13 | Outpatient (CLI) | payer MEDICARE, OTHER ==
[~2023-07-13] MED LIST changes: +ACET1TAB55 PO; +AMLO2.5T3 PO; +ARIP1TAB44 PO; +ASPI81TAEC PO; +B-122500 PO; +CLON0.5T2 PO; +COLA100C5 PO; -EFFE150C2 PO; +EFFE150C3 PO; +FERR1TAB8 PO; -FLUT50SP17; +FLUTISP NARES; +FURO40TA2 PO; +MIRT1TAB PO; +OXYC-517 PO; +PRAZ2CAP PO; +PROBCAP14 PO; +REST0.05 OU; +SENN-188 PO; +TUME1CAP PO; +TURM500T PO; +VITA200020 PO
== END ==
LOC: M SOG 10:17
PROVIDERS: ATTEND Orthopaedic Surgery Hand Surgery
DX: M19.041 Primary osteoarthritis, right hand (principal)

== ENCOUNTER → 2023-08-10 | Outpatient (REF) | payer MEDICARE, OTHER ==
[~2023-08-10] MED LIST changes: -ACET1TAB55 PO; +AMLO2.5T3; -AMLO2.5T3 PO; -ARIP1TAB44 PO; -ASPI81TAEC PO; -CLON0.5T2 PO; -COLA100C5 PO; +EFFE150C2 PO; -EFFE150C3 PO; -FERR1TAB8 PO; +FLUT50SP17; -FLUTISP NARES; -FURO40TA2 PO; +MIRT1TAB; -MIRT1TAB PO; -OXYC-517 PO; +PRAZ2CAP; -PRAZ2CAP PO; -SENN-188 PO; -TURM500T PO
[2023-08-10 13:38] LABS: BASO # 0.1 10^3/uL (0.0-0.2); BASO % 1.3 % (0.0-1.0); EOS # 0.1 10^3/uL (0.0-0.5); EOS % 1.1 % (0.0-3.0); HEMATOCRIT 39.3 % (36.0-47.0); HEMOGLOBIN 13.1 g/dl (12.0-15.5); LYMPH # 1.8 10^3/uL (1.5-5.0); LYMPH % 28.9 % (24.0-44.0); MEAN CORPUSCULAR HEMOGLOBIN 31.1 pg (27.0-33.0); MEAN CORPUSCULAR HGB CONC 33.3 g/dl (32.0-36.5); MEAN CORPUSCULAR VOLUME 93.3 fl (80.0-96.0); MONO # 0.9 10^3/uL (0.0-0.8); NEUTROPHILS # 3.5 10^3/uL (1.5-8.5); NEUTROPHILS % 54.4 % (36.0-66.0); PLATELET COUNT, AUTOMATED 213 10^3/uL (150-450); RED BLOOD COUNT 4.21 10^6/uL (4.00-5.40); WHITE BLOOD COUNT 6.3 10^3/uL (4.0-10.0)
[2023-08-10 13:43] LABS: HEMOGLOBIN A1c 4.9 % (4.0-6.0)
[2023-08-10 13:54] LABS: C REACTIVE PROTEIN QUANTITATIV < 0.40 MG/DL (<1.0)
[2023-08-10 13:55] LABS: ALBUMIN 3.8 G/DL (3.2-5.2); ALKALINE PHOSPHATASE 75 U/L (46-116); ALT/SGPT 23 U/L (7.0-40); AST/SGOT 29 U/L (<34); BILIRUBIN,TOTAL 0.3 MG/DL (0.3-1.2); BLOOD UREA NITROGEN 27 MG/DL (9-23); CALCIUM LEVEL 9.2 MG/DL (8.3-10.6); CARBON DIOXIDE LEVEL 34 MMOL/L (20-31); CHLORIDE LEVEL 99 MMOL/L (98-107); GLUCOSE, FASTING 77 MG/DL (74-106); POTASSIUM SERUM 4.6 MMOL/L (3.5-5.1); SODIUM LEVEL 138 MMOL/L (136-145); TOTAL PROTEIN 6.2 G/DL (5.7-8.2)
== END ==
LOC: M SFHCADAM 11:30
PROVIDERS: ATTEND Physician Assistant Medical
DX: Z01.818 Encounter for other preprocedural examination (principal); M17.12 Unilateral primary osteoarthritis, left knee; Z79.899 Other long term (current) drug therapy

== ENCOUNTER 2023-08-17 09:03 | Observation (INO) | payer MEDICARE, OTHER ==
[~2023-08-17] VITALS: Ht 162.6 cm; Wt 86.7 kg
[2023-08-17] VITALS (7 sets, daily range): BP systolic 127–142; BP diastolic 65–74; TEMP 97.2–98.1; O2SAT 92–95
[~2023-08-17 09:03] MED LIST changes: -AMLO2.5T3; +AMLO2.5T3 PO; +ARIP1TAB44 PO; +CLON0.5T2 PO; -FLUT50SP17; +FLUT50SP17 NARES; +FURO40TA2 PO; -MIRT1TAB; +MIRT1TAB PO; -PRAZ2CAP; +PRAZ2CAP PO; +ROPIVA 100MG/KETOR 15MG/EPINEPHRINE 0.3MG IN NS 50ML SYRINGE PA ONE; +TRANEXAMIC ACID 100 MG/ML 10ML VIAL IV ONE; +TURM500T PO; +UNRESOLVED CLARIFICATION ENTRY XX SCH
[2023-08-17] MEDS ORDERED: LR 1,000 ML IV SCH (09:35)
[2023-08-17] MEDS ORDERED: ROCURONIUM BROMIDE 50MG/5ML VIAL As Ordered ONE ×2 (09:47→12:14)
[2023-08-17] MEDS ORDERED: fentaNYL 100 MCG/2 ML INJECTION As Ordered ONE (09:47)
[2023-08-17] MEDS ORDERED: propofoL 200 MG/20 ML VIAL As Ordered ONE (09:47)
[2023-08-17] MEDS ORDERED: LIDOCAINE 2% 100MG/5ML SDV (FOR ANES.) As Ordered ONE (09:48)
[2023-08-17] MEDS ORDERED: MIDAZOLAM INJ 2MG/2ML VIAL IV PRN (09:50)
[2023-08-17] MEDS ORDERED: dexAMETHasone 10MG/1ML VIAL PRES.FREE PN ONE (09:50)
[2023-08-17] MEDS ORDERED: fentaNYL 100 MCG/2 ML INJECTION IV PRN ×2 (09:50→13:55)
[2023-08-17] MEDS ORDERED: ROPIvacaine 0.5% 30ML VIAL PN ONE (09:50)
[2023-08-17] MEDS ORDERED: LIDOCAINE 1% SDV 5ML VIAL PN ONE (09:50)
[2023-08-17] MEDS ORDERED: ONDANSETRON 4MG 2ML VIAL As Ordered ONE (09:53)
[2023-08-17] MEDS ORDERED: TRANEXAMIC ACID 100 MG/ML 10ML VIAL As Ordered ONE (10:57)
[2023-08-17] MEDS ORDERED: VANCOMYCIN HCL 750 MG, VIAL MATE ADAPTER 1 EACH in D5W 250 ML IV ONE (11:00)
[2023-08-17] MEDS ORDERED: LABETALOL 100MG/20ML VIAL As Ordered ONE (11:53)
[2023-08-17] MEDS ORDERED: VANCOMYCIN HCL 500 MG in D5W MINI-BAG PLUS 100 ML IV ONE (12:00)
[2023-08-17] MEDS ORDERED: HYDROmorphone HCL 2MG/ML 1ML VIAL As Ordered ONE (12:33)
[2023-08-17] MEDS ORDERED: SENNA 8.6 MG TAB (SENOKOT) PO PRN (13:50)
[2023-08-17] MEDS ORDERED: oxyCODONE 5MG TAB PO PRN ×2 (13:50→13:55)
[2023-08-17] MEDS ORDERED: ONDANSETRON 4MG 2ML VIAL IV PRN ×2 (13:50→13:55)
[2023-08-17] MEDS ORDERED: HYDROMORPHONE HCL 0.5 MG/ 0.5 ML SYRINGE IV PRN (13:55)
[2023-08-17] MEDS ORDERED: clonazePAM 0.5 MG TAB PO PRN (13:55)
[2023-08-17] MEDS ORDERED: LACRILUBE (AKWA TEARS) OPHTH OINT 3.5GM As Ordered ONE (14:09)
[2023-08-17] MEDS: LR 1,000 ML IV SCH ×2 (15:00→23:50)
[2023-08-17] MEDS: ACETAMINOPHEN TAB 650MG DOSE (2X325MG) PO SCH ×2 (18:04→23:06)
[2023-08-17] MEDS: ASPIRIN 81MG ENTERIC TABLET PO SCH (20:12)
[2023-08-17] MEDS: PRAZOSIN 1 MG CAP PO SCH (20:13)
[2023-08-17] MEDS: DOCUSATE SODIUM 100MG CAPSULE PO SCH (20:14)
[2023-08-17] MEDS: VENLAFAXINE **XR** 75MG CAPSULE PO SCH (20:14)
[2023-08-17] MEDS: MIRTAZAPINE 15 MG TAB PO SCH (20:18)
[2023-08-17] MEDS: MIRTAZAPINE 7.5MG PER 1/2 TABLET PO SCH ×2 (20:18→20:44)
[2023-08-17] MEDS: HYDROXYCHLOROQUINE 200 MG TAB PO SCH (20:43)
[2023-08-17] MEDS: DICYCLOMINE 10 MG CAP PO SCH (20:44)
[2023-08-17] MEDS ORDERED: ACETAMINOPHEN TAB 650MG DOSE (2X325MG) PO PRN (22:50)
[2023-08-17] MEDS: FLUTICASONE PROP 0.05% NASAL SPRAY 16 GM (FLONASE) NARES SCH (23:06)
[2023-08-17] MEDS: VANCOMYCIN HCL 1,000 MG, VIAL MATE ADAPTER 1 EACH in D5W 250 ML IV SCH (23:06)
[2023-08-18 02:00] VITALS: BP 145/75; TEMP 97.5; O2SAT 95
[2023-08-18] MEDS: ACETAMINOPHEN TAB 650MG DOSE (2X325MG) PO SCH ×4 (05:35→23:56)
[2023-08-18 06:00] VITALS: BP 144/69; TEMP 97.7; O2SAT 94
[2023-08-18 06:17] LABS: HEMATOCRIT 30.3 % (36.0-47.0); HEMOGLOBIN 10.2 g/dl (12.0-15.5); MEAN CORPUSCULAR HEMOGLOBIN 31.7 pg (27.0-33.0); MEAN CORPUSCULAR HGB CONC 33.7 g/dl (32.0-36.5); MEAN CORPUSCULAR VOLUME 94.1 fl (80.0-96.0); PLATELET COUNT, AUTOMATED 178 10^3/uL (150-450); RED BLOOD COUNT 3.22 10^6/uL (4.00-5.40); WHITE BLOOD COUNT 10.4 10^3/uL (4.0-10.0)
[2023-08-18 06:29] LABS: INR 1.12
[2023-08-18 06:51] LABS: ALBUMIN 2.8 G/DL (3.2-5.2); BILIRUBIN,TOTAL 0.2 MG/DL (0.3-1.2); CALCIUM LEVEL 8.3 MG/DL (8.3-10.6); CREATININE FOR GFR 1.19 MG/DL (0.55-1.30); GLOMERULAR FILTRATION RATE 47.3 (>39); PHOSPHORUS LEVEL 4.3 MG/DL (2.4-5.1); POTASSIUM SERUM 4.6 MMOL/L (3.5-5.1); TOTAL PROTEIN 4.8 G/DL (5.7-8.2)
[2023-08-18] MEDS: DOCUSATE SODIUM 100MG CAPSULE PO SCH ×2 (08:15→20:38)
[2023-08-18] MEDS: FUROSEMIDE 40 MG TAB PO SCH (08:15)
[2023-08-18] MEDS: ARIPiprazole 15 MG TAB (AbiLIFY) PO SCH (08:15)
[2023-08-18] MEDS: FERROUS SULFATE 325MG TAB PO SCH (08:16)
[2023-08-18] MEDS: ASPIRIN 81MG ENTERIC TABLET PO SCH ×2 (08:16→20:37)
[2023-08-18] MEDS: HYDROXYCHLOROQUINE 200 MG TAB PO SCH ×2 (08:16→20:37)
[2023-08-18] MEDS: ASCORBIC ACID 500 MG TAB PO SCH (08:16)
[2023-08-18 10:15] VITALS: BP 136/72; TEMP 97.9; O2SAT 95
[2023-08-18] MEDS: VANCOMYCIN HCL 1,000 MG, VIAL MATE ADAPTER 1 EACH in D5W 250 ML IV SCH (11:12)
[2023-08-18 14:30] VITALS: BP 125/90; TEMP 98.1; O2SAT 94
[2023-08-18 20:36] VITALS: BP 125/51; TEMP 97.7; O2SAT 96
[2023-08-18] MEDS: MIRTAZAPINE 15 MG TAB PO SCH (20:37)
[2023-08-18] MEDS: MIRTAZAPINE 7.5MG PER 1/2 TABLET PO SCH (20:37)
[2023-08-18] MEDS: DICYCLOMINE 10 MG CAP PO SCH (20:37)
[2023-08-18] MEDS: VENLAFAXINE **XR** 75MG CAPSULE PO SCH (20:37)
[2023-08-18 20:38] VITALS: BP 125/51
[2023-08-18] MEDS: PRAZOSIN 1 MG CAP PO SCH (20:38)
[2023-08-18] MEDS: FLUTICASONE PROP 0.05% NASAL SPRAY 16 GM (FLONASE) NARES SCH (20:38)
[2023-08-18] MEDS ORDERED: VANCOMYCIN HCL 1,000 MG, VIAL MATE ADAPTER 1 EACH in D5W 250 ML IV SCH (23:00)
[2023-08-18] MEDS: oxyCODONE 5MG TAB PO PRN (23:57)
[2023-08-19 05:56] VITALS: BP 120/51; TEMP 97.5; O2SAT 92
[2023-08-19 05:57] LABS: HEMATOCRIT 25.3 % (36.0-47.0); HEMOGLOBIN 8.5 g/dl (12.0-15.5); MEAN CORPUSCULAR HEMOGLOBIN 31.1 pg (27.0-33.0); MEAN CORPUSCULAR HGB CONC 33.6 g/dl (32.0-36.5); MEAN CORPUSCULAR VOLUME 92.7 fl (80.0-96.0); PLATELET COUNT, AUTOMATED 128 10^3/uL (150-450); RED BLOOD COUNT 2.73 10^6/uL (4.00-5.40); WHITE BLOOD COUNT 6.9 10^3/uL (4.0-10.0)
[2023-08-19 06:08] LABS: INR 1.12
[2023-08-19] MEDS: ACETAMINOPHEN TAB 650MG DOSE (2X325MG) PO SCH ×2 (06:14→12:27)
[2023-08-19 06:30] LABS: ALBUMIN 2.5 G/DL (3.2-5.2); BILIRUBIN,TOTAL 0.3 MG/DL (0.3-1.2); CREATININE FOR GFR 1.36 MG/DL (0.55-1.30); GLOMERULAR FILTRATION RATE 40.6 (>39); PHOSPHORUS LEVEL 3.9 MG/DL (2.4-5.1); POTASSIUM SERUM 4.4 MMOL/L (3.5-5.1); TOTAL PROTEIN 4.3 G/DL (5.7-8.2)
[2023-08-19] MEDS ORDERED: VANCOMYCIN HCL 1,000 MG, VIAL MATE ADAPTER 1 EACH in D5W 250 ML IV SCH (08:50)
[2023-08-19] MEDS: ARIPiprazole 15 MG TAB (AbiLIFY) PO SCH (08:58)
[2023-08-19] MEDS: FERROUS SULFATE 325MG TAB PO SCH (08:58)
[2023-08-19] MEDS: HYDROXYCHLOROQUINE 200 MG TAB PO SCH (08:58)
[2023-08-19] MEDS: FUROSEMIDE 40 MG TAB PO SCH (08:59)
[2023-08-19] MEDS: DOCUSATE SODIUM 100MG CAPSULE PO SCH (08:59)
[2023-08-19] MEDS: ASCORBIC ACID 500 MG TAB PO SCH (09:00)
[2023-08-19] MEDS: ASPIRIN 81MG ENTERIC TABLET PO SCH (09:00)
[2023-08-19] MEDS: oxyCODONE 5MG TAB PO PRN (09:00)
[2023-08-19] MEDS ORDERED: ACET1TAB55 PO (13:27)
[2023-08-19] MEDS ORDERED: SENN-188 PO (13:27)
[2023-08-19] MEDS ORDERED: COLA100C5 PO (13:27)
[2023-08-19] MEDS ORDERED: ASPI81TAEC PO (13:27)
[2023-08-19] MEDS ORDERED: OXYC-517 PO (13:27)
[2023-08-19] MEDS ORDERED: FERR1TAB8 PO (13:27)
== END 2023-08-19 16:30 | disposition home health service (06) ==
LOC: M SDC 09:03 → M RR INP 09:04 → M MS5PR 15:00
PROVIDERS: ADMIT Orthopaedic Surgery; ATTEND Orthopaedic Surgery
DX: M17.12 Unilateral primary osteoarthritis, left knee (principal); G47.30 Sleep apnea, unspecified; F43.10 Post-traumatic stress disorder, unspecified; I10 Essential (primary) hypertension; K58.9 Irritable bowel syndrome, unspecified; M32.9 Systemic lupus erythematosus, unspecified; R56.9 Unspecified convulsions; Z88.8 Allergy status to other drugs, medicaments and biological substances; Z88.1 Allergy status to other antibiotic agents; Z88.0 Allergy status to penicillin; Z88.2 Allergy status to sulfonamides; Z88.6 Allergy status to analgesic agent; Z79.899 Other long term (current) drug therapy; Z79.82 Long term (current) use of aspirin; Z87.891 Personal history of nicotine dependence
CPT/HCPCS: 27447; 36415; 73560; 80053; 80069; 85027; 85610; 87635; 96374; 96376; 97116; 97161; 97165; 97535; C1776; G0378; J1100; J1170; J1920; J2250; J2405; J2795; J3010; J3370; S2900

== ENCOUNTER → 2023-08-26 | Outpatient (CLI) | payer MEDICARE, OTHER ==
[~2023-08-26] MED LIST changes: +ACET1TAB55 PO; +ASPI81TAEC PO; +COLA100C5 PO; -EFFE150C2 PO; +EFFE150C3 PO; +FERR1TAB8 PO; -FLUT50SP17 NARES; +FLUTISP NARES; +OXYC-517 PO; -ROPIVA 100MG/KETOR 15MG/EPINEPHRINE 0.3MG IN NS 50ML SYRINGE PA ONE; +SENN-188 PO; -TRANEXAMIC ACID 100 MG/ML 10ML VIAL IV ONE; -UNRESOLVED CLARIFICATION ENTRY XX SCH
== END ==
LOC: M SOG 13:03
PROVIDERS: ATTEND Orthopaedic Surgery
DX: Z47.1 Aftercare following joint replacement surgery (principal); Z96.652 Presence of left artificial knee joint

== ENCOUNTER → 2023-09-30 | Outpatient (CLI) | payer MEDICARE, OTHER | LOC: M SLEEP 20:00 | PROVIDERS: ATTEND Nurse Practitioner Adult Health | DX: G47.33 Obstructive sleep apnea (adult) (pediatric) (principal) ==

== ENCOUNTER → 2023-10-20 | Outpatient (CLI) | payer MEDICARE, OTHER | LOC: M SOG 07:55 | PROVIDERS: ATTEND Orthopaedic Surgery | DX: Z96.652 Presence of left artificial knee joint (principal) ==

== ENCOUNTER → 2023-10-27 | Outpatient (REF) | payer MEDICARE, OTHER ==
[2023-10-27 18:15] LABS: ALBUMIN 3.9 G/DL (3.2-5.2); BILIRUBIN,TOTAL 0.3 MG/DL (0.3-1.2); CALCIUM LEVEL 9.3 MG/DL (8.3-10.6); CREATININE FOR GFR 1.02 MG/DL (0.55-1.30); GLOMERULAR FILTRATION RATE 56.6 (>39); POTASSIUM SERUM 4.2 MMOL/L (3.5-5.1); TOTAL PROTEIN 6.3 G/DL (5.7-8.2)
== END ==
LOC: M SFHCADAM 14:44
PROVIDERS: ATTEND Physician Assistant
DX: R60.0 Localized edema (principal); I12.9 Hypertensive chronic kidney disease with stage 1 through stage 4 chronic kidney disease, or unspecified chronic kidney disease

== ENCOUNTER → 2023-12-01 | Outpatient (CLI) | payer MEDICARE, OTHER ==
[~2023-12-01] MED LIST changes: +RISP-105 PO; -RISP-8 PO
== END ==
LOC: M SOG 07:53
PROVIDERS: ATTEND Orthopaedic Surgery
DX: M17.11 Unilateral primary osteoarthritis, right knee (principal); Z96.652 Presence of left artificial knee joint; M25.461 Effusion, right knee; M25.462 Effusion, left knee

== ENCOUNTER 2023-12-24 05:58 | Day surgery (SDC) | payer MEDICARE, OTHER ==
[~2023-12-24] VITALS: Ht 162.6 cm; Wt 86.2 kg
[~2023-12-24 05:58] MED LIST changes: +ECOT81TA5 PO; +SPIR-10 PO; +THERTAB52 PO
[2023-12-24] MEDS ORDERED: LIDOCAINE W/EPINEPHRINE 1% 20ML VIAL XX ONE (06:00)
[2023-12-24] MEDS ORDERED: SODIUM BICARBONATE 8.4% INJ 50MEQ 50ML VIAL XX ONE (06:00)
[2023-12-24] MEDS: BACITRACIN OINTMENT 30GM TUBE As Ordered ONE (07:41)
[2023-12-24 08:00] VITALS: BP 152/69; TEMP 98; O2SAT 100
== END 2023-12-24 08:02 | disposition home or self-care (01) ==
LOC: M SDC 05:58
PROVIDERS: ATTEND Orthopaedic Surgery Hand Surgery
DX: G56.01 Carpal tunnel syndrome, right upper limb (principal); G47.30 Sleep apnea, unspecified; Z88.1 Allergy status to other antibiotic agents; Z88.0 Allergy status to penicillin; Z88.2 Allergy status to sulfonamides; Z88.8 Allergy status to other drugs, medicaments and biological substances; Z79.899 Other long term (current) drug therapy

== ENCOUNTER → 2023-12-27 | Outpatient (REF) | payer MEDICARE, OTHER ==
[2023-12-27 14:40] LABS: ALBUMIN 3.8 G/DL (3.2-5.2); BILIRUBIN,TOTAL 0.3 MG/DL (0.3-1.2); CALCIUM LEVEL 8.7 MG/DL (8.3-10.6); CREATININE FOR GFR 1.29 MG/DL (0.55-1.30); GLOMERULAR FILTRATION RATE 43.1 (>39); POTASSIUM SERUM 4.1 MMOL/L (3.5-5.1); TOTAL PROTEIN 5.8 G/DL (5.7-8.2)
== END ==
LOC: M SFHCADAM 08:14
PROVIDERS: ATTEND Physician Assistant
DX: Z00.00 Encounter for general adult medical examination without abnormal findings (principal); I12.9 Hypertensive chronic kidney disease with stage 1 through stage 4 chronic kidney disease, or unspecified chronic kidney disease; E78.00 Pure hypercholesterolemia, unspecified; N18.31 Chronic kidney disease, stage 3a; E66.9 Obesity, unspecified; K21.9 Gastro-esophageal reflux disease without esophagitis; F33.3 Major depressive disorder, recurrent, severe with psychotic symptoms

== ENCOUNTER 2024-01-07 08:48 | Day surgery (SDC) | payer MEDICARE, OTHER ==
[~2024-01-07] VITALS: Ht 162.6 cm; Wt 89.1 kg
[2024-01-07] MEDS: SODIUM BICARBONATE 8.4% INJ 50MEQ 50ML VIAL XX ONE (10:10)
[2024-01-07] MEDS: LIDOCAINE W/EPINEPHRINE 1% 20ML VIAL XX ONE (10:10)
[2024-01-07] MEDS: BACITRACIN OINTMENT 30GM TUBE As Ordered ONE (10:45)
[2024-01-07 11:05] VITALS: BP 157/67; TEMP 97.5; O2SAT 100
== END 2024-01-07 11:11 | disposition home or self-care (01) ==
LOC: M SDC 08:48
PROVIDERS: ATTEND Orthopaedic Surgery Hand Surgery
DX: G56.02 Carpal tunnel syndrome, left upper limb (principal); I10 Essential (primary) hypertension; M32.9 Systemic lupus erythematosus, unspecified; G47.30 Sleep apnea, unspecified; Z79.899 Other long term (current) drug therapy; Z79.82 Long term (current) use of aspirin; K58.9 Irritable bowel syndrome, unspecified; Z85.828 Personal history of other malignant neoplasm of skin; Z90.49 Acquired absence of other specified parts of digestive tract; Z88.0 Allergy status to penicillin; Z88.8 Allergy status to other drugs, medicaments and biological substances; Z88.1 Allergy status to other antibiotic agents; Z88.2 Allergy status to sulfonamides

== ENCOUNTER → 2024-03-01 | Outpatient (CLI) | payer MEDICARE, OTHER | LOC: M SOG 07:57 | PROVIDERS: ATTEND Orthopaedic Surgery | DX: M16.11 Unilateral primary osteoarthritis, right hip (principal); M25.551 Pain in right hip ==

== ENCOUNTER → 2024-03-09 | Outpatient (REF) | payer MEDICARE, OTHER ==
[~2024-03-09] MED LIST changes: +BRIN1TAB3 PO; +JARD1TAB PO; +MIRT-11 PO
== END ==
LOC: M SFHCADAM 17:47
PROVIDERS: ATTEND Physician Assistant
DX: N18.31 Chronic kidney disease, stage 3a (principal)

== ENCOUNTER → 2024-03-16 | Outpatient (REF) | payer MEDICARE, OTHER ==
[2024-03-16 15:05] LABS: CALCIUM LEVEL 9.4 MG/DL (8.3-10.6); CREATININE FOR GFR 1.52 MG/DL (0.55-1.30); GLOMERULAR FILTRATION RATE 35.7 (>39); POTASSIUM SERUM 4.5 MMOL/L (3.5-5.1)
== END ==
LOC: M SFHCADAM 08:46
PROVIDERS: ATTEND Physician Assistant
DX: N18.31 Chronic kidney disease, stage 3a (principal)

== ENCOUNTER 2024-03-27 10:18 | Day surgery (SDC) | payer MEDICARE, OTHER ==
[~2024-03-27] VITALS: Ht 162.6 cm; Wt 86.7 kg
[~2024-03-27 10:18] MED LIST changes: +LIDOCAINE 2% 100MG/5ML SDV (FOR ANES.) As Ordered ONE; +NS 1,000 ML IV ONE; +propofoL 200 MG/20 ML VIAL As Ordered ONE
[2024-03-27 12:25] VITALS: BP 192/74; O2SAT 97
== END 2024-03-27 12:31 | disposition home or self-care (01) ==
LOC: M OPP 10:18
PROVIDERS: ATTEND Internal Medicine Gastroenterology
DX: Z12.11 Encounter for screening for malignant neoplasm of colon (principal); Z83.719 Family history of colon polyps, unspecified; K64.0 First degree hemorrhoids; G47.30 Sleep apnea, unspecified; Z99.89 Dependence on other enabling machines and devices; I10 Essential (primary) hypertension; Z79.82 Long term (current) use of aspirin; Z79.899 Other long term (current) drug therapy; Z88.1 Allergy status to other antibiotic agents; Z88.2 Allergy status to sulfonamides; Z88.8 Allergy status to other drugs, medicaments and biological substances; Z87.891 Personal history of nicotine dependence

== ENCOUNTER → 2024-04-18 | Outpatient (REF) | payer MEDICARE, OTHER ==
[~2024-04-18] MED LIST changes: -LIDOCAINE 2% 100MG/5ML SDV (FOR ANES.) As Ordered ONE; -NS 1,000 ML IV ONE; -propofoL 200 MG/20 ML VIAL As Ordered ONE
[2024-04-18 16:22] LABS: CALCIUM LEVEL 9.1 MG/DL (8.3-10.6); CREATININE FOR GFR 1.38 MG/DL (0.55-1.30); GLOMERULAR FILTRATION RATE 39.9 (>39); POTASSIUM SERUM 3.9 MMOL/L (3.5-5.1)
== END ==
LOC: M SFHCADAM 08:19
PROVIDERS: ATTEND Physician Assistant
DX: I10 Essential (primary) hypertension (principal)

== ENCOUNTER → 2024-06-01 | Outpatient (CLI) | payer MEDICARE, OTHER ==
[~2024-06-01] MED LIST changes: -ARIP1TAB43 PO; +ARIP20TA51 PO
== END ==
LOC: M SOG 07:48
PROVIDERS: ATTEND Orthopaedic Surgery
DX: Z96.652 Presence of left artificial knee joint (principal)

== ENCOUNTER → 2024-06-05 | Outpatient (REF) | payer MEDICARE, OTHER ==
[2024-06-05 13:52] LABS: CALCIUM LEVEL 9.4 MG/DL (8.3-10.6); CREATININE FOR GFR 1.23 MG/DL (0.55-1.30); GLOMERULAR FILTRATION RATE 45.6 (>39); POTASSIUM SERUM 3.7 MMOL/L (3.5-5.1)
== END ==
LOC: M SFHCADAM 07:58
PROVIDERS: ATTEND Physician Assistant
DX: I10 Essential (primary) hypertension (principal); N18.31 Chronic kidney disease, stage 3a

== ENCOUNTER → 2024-06-27 | Outpatient (REF) | payer MEDICARE, OTHER ==
[2024-06-27 12:39] LABS: HEMATOCRIT 43.4 % (36.0-47.0); HEMOGLOBIN 14.2 g/dl (12.0-15.5); MEAN CORPUSCULAR HEMOGLOBIN 31.3 pg (27.0-33.0); MEAN CORPUSCULAR HGB CONC 32.7 g/dl (32.0-36.5); MEAN CORPUSCULAR VOLUME 95.8 fl (80.0-96.0); PLATELET COUNT, AUTOMATED 203 10^3/uL (150-450); RED BLOOD COUNT 4.53 10^6/uL (4.00-5.40); WHITE BLOOD COUNT 5.2 10^3/uL (4.0-10.0)
[2024-06-27 13:15] LABS: ALBUMIN 4.1 G/DL (3.2-5.2); BILIRUBIN,TOTAL 0.4 MG/DL (0.3-1.2); CALCIUM LEVEL 9.9 MG/DL (8.3-10.6); CHOLESTEROL RISK RATIO 2.04 (<5); CREATININE FOR GFR 1.28 MG/DL (0.55-1.30); FREE T4 1.37 NG/DL (0.89-1.76); GLOMERULAR FILTRATION RATE 43.5 (>39); HDL CHOLESTEROL 81.6 MG/DL (>40); LDL CHOLESTEROL 72.8 MG/DL (<100); NON-HDL-C 85.4 MG/DL; POTASSIUM SERUM 4.2 MMOL/L (3.5-5.1); THYROID STIMULATING HORMONE 1.084 uIU/ML (0.55-4.78); TOTAL PROTEIN 6.4 G/DL (5.7-8.2)
== END ==
LOC: M SFHCADAM 07:55
PROVIDERS: ATTEND Physician Assistant
DX: I10 Essential (primary) hypertension (principal); K21.9 Gastro-esophageal reflux disease without esophagitis; E78.00 Pure hypercholesterolemia, unspecified; F33.3 Major depressive disorder, recurrent, severe with psychotic symptoms; Z79.899 Other long term (current) drug therapy

== ENCOUNTER → 2024-09-01 | Outpatient (CLI) | payer MEDICARE, OTHER ==
[~2024-09-01] MED LIST changes: -ARIP1TAB44 PO; +ARIP30TA38 PO; +GABA-1172 PO; -GABA-282 PO
== END ==
LOC: M SOG 07:50
PROVIDERS: ATTEND Orthopaedic Surgery
DX: M17.11 Unilateral primary osteoarthritis, right knee (principal)

== ENCOUNTER → 2024-09-11 | Outpatient (CLI) | payer MEDICARE, OTHER | LOC: M SOG 07:55 | PROVIDERS: ATTEND Orthopaedic Surgery | DX: M16.11 Unilateral primary osteoarthritis, right hip (principal) ==

== ENCOUNTER → 2024-12-06 | Outpatient (REF) | payer MEDICARE, OTHER ==
[2024-12-06 12:45] LABS: BASO # 0.1 10^3/uL (0.0-0.2); BASO % 0.6 % (0.0-1.0); EOS % 0.2 % (0.0-3.0); HEMATOCRIT 42.3 % (36.0-47.0); HEMOGLOBIN 13.7 g/dl (12.0-15.5); LYMPH # 1.6 10^3/uL (1.5-5.0); LYMPH % 19.5 % (24.0-44.0); MEAN CORPUSCULAR HEMOGLOBIN 30.9 pg (27.0-33.0); MEAN CORPUSCULAR HGB CONC 32.4 g/dl (32.0-36.5); MEAN CORPUSCULAR VOLUME 95.5 fl (80.0-96.0); MONO # 0.9 10^3/uL (0.0-0.8); NEUTROPHILS # 5.5 10^3/uL (1.5-8.5); NEUTROPHILS % 67.8 % (36.0-66.0); PLATELET COUNT, AUTOMATED 176 10^3/uL (150-450); RED BLOOD COUNT 4.43 10^6/uL (4.00-5.40); WHITE BLOOD COUNT 8.1 10^3/uL (4.0-10.0)
[2024-12-06 12:48] LABS: INR 0.95; PROTHROMBIN TIME 12.9 SECONDS (12.5-14.5)
[2024-12-06 12:50] LABS: C REACTIVE PROTEIN QUANTITATIV < 0.50 MG/DL (<1.0)
[2024-12-06 12:51] LABS: ALBUMIN 3.5 G/DL (3.2-5.2); ALKALINE PHOSPHATASE 64 U/L (35-104); ALT/SGPT 30 U/L (7.0-40); AST/SGOT 22 U/L (<34); BILIRUBIN,TOTAL 0.4 MG/DL (0.3-1.2); BLOOD UREA NITROGEN 46 MG/DL (9-23); CALCIUM LEVEL 8.7 MG/DL (8.3-10.6); CARBON DIOXIDE LEVEL 30 MMOL/L (20-31); CHLORIDE LEVEL 107 MMOL/L (98-107); CREATININE FOR GFR 1.19 MG/DL (0.55-1.30); GLOMERULAR FILTRATION RATE 47.2 (>39); GLUCOSE, FASTING 67 MG/DL (74-106); POTASSIUM SERUM 3.4 MMOL/L (3.5-5.1); SODIUM LEVEL 148 MMOL/L (136-145)
[2024-12-06 12:53] LABS: TOTAL 25(OH) VITAMIN D 45.3 NG/ML (20.0-100.0)
[2024-12-06 13:01] LABS: HEMOGLOBIN A1c 5.1 % (4.0-6.0)
[2024-12-06 13:19] LABS: ERYTHROCYTE SEDIMENTATION RATE < 1 mm/hr (0-30)
== END ==
LOC: M LABDRWAD 12:30
PROVIDERS: ATTEND Orthopaedic Surgery
DX: M17.11 Unilateral primary osteoarthritis, right knee (principal); Z79.01 Long term (current) use of anticoagulants

== ENCOUNTER → 2025-01-01 | Outpatient (REF) | payer MEDICARE, OTHER ==
[2025-01-01 13:48] LABS: CREATININE FOR GFR 1.28 MG/DL (0.55-1.30); GLOMERULAR FILTRATION RATE 43.4 (>39)
== END ==
LOC: M SFHCADAM 07:58
PROVIDERS: ATTEND Physician Assistant
DX: N18.31 Chronic kidney disease, stage 3a (principal)

== ENCOUNTER → 2025-01-04 | Outpatient (CLI) | payer MEDICARE, OTHER | LOC: M ADAMS 09:33 | PROVIDERS: ATTEND Physician Assistant | DX: J40 Bronchitis, not specified as acute or chronic (principal) ==

== ENCOUNTER → 2025-01-23 | Outpatient (CLI) | payer MEDICARE, OTHER | LOC: M RAD 14:11 | PROVIDERS: ATTEND Orthopaedic Surgery | DX: M17.11 Unilateral primary osteoarthritis, right knee (principal) ==

== ENCOUNTER → 2025-02-06 | Outpatient (REF) | payer MEDICARE, OTHER ==
[~2025-02-06] MED LIST changes: +BRIN10TA4 PO; +IBUP200C34 PO
[2025-02-06 13:36] LABS: HEMATOCRIT 41.7 % (36.0-47.0); HEMOGLOBIN 13.6 g/dl (12.0-15.5); MEAN CORPUSCULAR HEMOGLOBIN 30.7 pg (27.0-33.0); MEAN CORPUSCULAR HGB CONC 32.6 g/dl (32.0-36.5); MEAN CORPUSCULAR VOLUME 94.1 fl (80.0-96.0); PLATELET COUNT, AUTOMATED 190 10^3/uL (150-450); RED BLOOD COUNT 4.43 10^6/uL (4.00-5.40); WHITE BLOOD COUNT 7.4 10^3/uL (4.0-10.0)
[2025-02-06 14:11] LABS: CALCIUM LEVEL 9.3 MG/DL (8.3-10.6); CREATININE FOR GFR 1.28 MG/DL (0.55-1.30); POTASSIUM SERUM 4.3 MMOL/L (3.5-5.1)
== END ==
LOC: M SFHCADAM 11:14
PROVIDERS: ATTEND Physician Assistant
DX: N18.31 Chronic kidney disease, stage 3a (principal); Z79.899 Other long term (current) drug therapy

== ENCOUNTER → 2025-02-09 | Outpatient (REF) | payer MEDICARE, OTHER ==
[~2025-02-09] MED LIST changes: +SENN-186 PO
[2025-02-09 13:35] LABS: BASO # 0.1 10^3/uL (0.0-0.2); EOS # 0.2 10^3/uL (0.0-0.5); EOS % 3.7 % (0.0-3.0); HEMATOCRIT 41.3 % (36.0-47.0); HEMOGLOBIN 13.5 g/dl (12.0-15.5); INR 0.97; LYMPH # 1.3 10^3/uL (1.5-5.0); LYMPH % 22.3 % (24.0-44.0); MEAN CORPUSCULAR HEMOGLOBIN 30.8 pg (27.0-33.0); MEAN CORPUSCULAR HGB CONC 32.7 g/dl (32.0-36.5); MEAN CORPUSCULAR VOLUME 94.3 fl (80.0-96.0); MONO # 0.8 10^3/uL (0.0-0.8); MONO % 13.1 % (2.0-8.0); NEUTROPHILS # 3.4 10^3/uL (1.5-8.5); NEUTROPHILS % 59.6 % (36.0-66.0); PLATELET COUNT, AUTOMATED 178 10^3/uL (150-450); PROTHROMBIN TIME 13.2 SECONDS (12.5-14.5); RED BLOOD COUNT 4.38 10^6/uL (4.00-5.40); WHITE BLOOD COUNT 5.7 10^3/uL (4.0-10.0)
[2025-02-09 14:07] LABS: ALBUMIN 3.4 G/DL (3.2-5.2); ALKALINE PHOSPHATASE 67 U/L (35-104); ALT/SGPT 27 U/L (7.0-40); AST/SGOT 33 U/L (<34); BILIRUBIN,TOTAL 0.4 MG/DL (0.3-1.2); BLOOD UREA NITROGEN 27 MG/DL (9-23); C REACTIVE PROTEIN QUANTITATIV < 0.50 MG/DL (<1.0); CALCIUM LEVEL 9.1 MG/DL (8.3-10.6); CARBON DIOXIDE LEVEL 32 MMOL/L (20-31); CHLORIDE LEVEL 107 MMOL/L (98-107); CREATININE FOR GFR 1.15 MG/DL (0.55-1.30); GLUCOSE, FASTING 84 MG/DL (74-106); POTASSIUM SERUM 3.8 MMOL/L (3.5-5.1); SODIUM LEVEL 145 MMOL/L (136-145); TOTAL PROTEIN 6.1 G/DL (5.7-8.2)
[2025-02-09 14:09] LABS: TOTAL 25(OH) VITAMIN D 81.3 NG/ML (20.0-100.0)
== END ==
LOC: M LABDRWAD 13:15
PROVIDERS: ATTEND Orthopaedic Surgery
DX: M17.11 Unilateral primary osteoarthritis, right knee (principal); Z96.652 Presence of left artificial knee joint; Z79.01 Long term (current) use of anticoagulants; Z79.899 Other long term (current) drug therapy

== ENCOUNTER 2025-02-12 05:59 | Observation (INO) | payer MEDICARE, OTHER ==
[2025-02-12] VITALS (9 sets, daily range): BP systolic 140–175; BP diastolic 59–74; TEMP 97.7–98.8; O2SAT 92–98
[~2025-02-12] VITALS: Ht 162.6 cm; Wt 83.9 kg
[~2025-02-12 05:59] MED LIST changes: -SENN-186 PO
[2025-02-12] MEDS ORDERED: ACETAMINOPHEN 1000MG/100ML IV BAG As Ordered ONE (06:43)
[2025-02-12] MEDS ORDERED: LIDOCAINE 2% 100MG/5ML SDV (FOR ANES.) As Ordered ONE (06:46)
[2025-02-12] MEDS ORDERED: ROCURONIUM BROMIDE 50MG/5ML VIAL As Ordered ONE (06:46)
[2025-02-12] MEDS ORDERED: ONDANSETRON 4MG 2ML VIAL As Ordered ONE (06:46)
[2025-02-12] MEDS ORDERED: KETOROLAC 30 MG/ML 1ML VIAL As Ordered ONE (06:46)
[2025-02-12] MEDS ORDERED: MIDAZOLAM INJ 2MG/2ML VIAL As Ordered ONE (06:47)
[2025-02-12] MEDS ORDERED: fentaNYL 100 MCG/2 ML INJECTION As Ordered ONE (06:47)
[2025-02-12] MEDS ORDERED: propofoL 200 MG/20 ML VIAL As Ordered ONE (06:47)
[2025-02-12] MEDS ORDERED: SUGAMMADEX SODIUM 500 MG/5 ML VIAL (BRIDION) As Ordered ONE (06:47)
[2025-02-12] MEDS: VANCOMYCIN 1000MG/20ML VIAL As Ordered ONE (07:45)
[2025-02-12] MEDS: VANCOMYCIN HCL 1,000 MG, VIAL MATE ADAPTER 1 EACH in NS 250 ML IV ONE (08:00)
[2025-02-12] MEDS: TRANEXAMIC ACID 100 MG/ML 10ML VIAL IV ONE (08:10)
[2025-02-12] MEDS ORDERED: HYDROmorphone HCL 2MG/ML 1ML VIAL As Ordered ONE (08:24)
[2025-02-12] MEDS ORDERED: PHENYLephrine 500MCG 5ML (100MCG/ML) SYRINGE As Ordered ONE (08:53)
[2025-02-12] MEDS ORDERED: ePHEDrine SULFATE 25 MG/5 ML(5MG/ML) SYRINGE As Ordered ONE (08:53)
[2025-02-12] MEDS ORDERED: LABETALOL 100MG/20ML VIAL As Ordered ONE (08:53)
[2025-02-12] MEDS: REK 50ML SYRINGE IA ONE (09:08)
[2025-02-12] MEDS: TRANEXAMIC ACID 100 MG/ML 10ML VIAL As Ordered ONE (09:30)
[2025-02-12] MEDS ORDERED: diphenhydrAMINE 50MG/ML VIAL IV PRN (10:10)
[2025-02-12] MEDS ORDERED: MEPERIDINE 25 MG/ML 1ML VIAL IV PRN (10:10)
[2025-02-12] MEDS ORDERED: METOCLOPRAMIDE INJ 10MG/2ML VIAL IV PRN (10:10)
[2025-02-12] MEDS ORDERED: ONDANSETRON 4MG 2ML VIAL IV PRN ×2 (10:10→10:20)
[2025-02-12] MEDS ORDERED: oxyCODONE 5MG TAB PO PRN (10:10)
[2025-02-12] MEDS: LR 1,000 ML IV SCH (10:10)
[2025-02-12] MEDS ORDERED: HYDROMORPHONE HCL 0.5 MG/ 0.5 ML SYRINGE IV PRN (10:10)
[2025-02-12] MEDS ORDERED: SENNA 8.6 MG TAB (SENOKOT) PO PRN (10:20)
[2025-02-12] MEDS: ACETAMINOPHEN 325 MG TAB PO SCH (14:45)
[2025-02-12] MEDS ORDERED: SENN-186 PO (16:53)
[2025-02-12] MEDS ORDERED: ARIP30TA38 PO (16:53)
[2025-02-12] MEDS ORDERED: HOME MED LIST COMPLETE! XX SCH (16:55)
[2025-02-12] MEDS: oxyCODONE 5MG TAB PO PRN (18:41)
[2025-02-12] MEDS: DOCUSATE SODIUM 100MG CAPSULE PO SCH (21:00)
[2025-02-12] MEDS: MIRTAZAPINE 15 MG TAB PO SCH (21:13)
[2025-02-12] MEDS: PRAZOSIN 1 MG CAP PO SCH (21:13)
[2025-02-12] MEDS: ASPIRIN 81MG ENTERIC TABLET PO SCH (21:13)
[2025-02-12] MEDS: VANCOMYCIN HCL 1,000 MG, VIAL MATE ADAPTER 1 EACH in NS 250 ML IV SCH (21:16)
[2025-02-12] MEDS: DICYCLOMINE 10 MG CAP PO SCH (22:34)
[2025-02-12] MEDS: FLUTICASONE PROP 0.05% NASAL SPRAY 16 GM (FLONASE) NARES SCH (22:35)
[2025-02-13 04:19] VITALS: BP 150/62; TEMP 97.4; O2SAT 96
[2025-02-13 06:12] LABS: HEMATOCRIT 35.5 % (36.0-47.0); HEMOGLOBIN 11.8 g/dl (12.0-15.5); MEAN CORPUSCULAR HEMOGLOBIN 31.2 pg (27.0-33.0); MEAN CORPUSCULAR HGB CONC 33.2 g/dl (32.0-36.5); MEAN CORPUSCULAR VOLUME 93.9 fl (80.0-96.0); PLATELET COUNT, AUTOMATED 155 10^3/uL (150-450); RED BLOOD COUNT 3.78 10^6/uL (4.00-5.40); WHITE BLOOD COUNT 8.9 10^3/uL (4.0-10.0)
[2025-02-13 06:36] LABS: ALBUMIN 2.7 G/DL (3.2-5.2); BILIRUBIN,TOTAL 0.5 MG/DL (0.3-1.2); CALCIUM LEVEL 8.4 MG/DL (8.3-10.6); CREATININE FOR GFR 1.1 MG/DL (0.55-1.30); GLOMERULAR FILTRATION RATE 52.7 (>39); POTASSIUM SERUM 4.1 MMOL/L (3.5-5.1)
[2025-02-13] MEDS: oxyCODONE 5MG TAB PO PRN (06:48)
[2025-02-13 08:00] VITALS: BP 127/47; TEMP 98.1; O2SAT 96
[2025-02-13] MEDS: FERROUS SULFATE 325MG TAB PO SCH (08:27)
[2025-02-13] MEDS: ASCORBIC ACID 500 MG TAB PO SCH (08:28)
[2025-02-13] MEDS ORDERED: CLIN150C17 PO (09:04)
[2025-02-13] MEDS ORDERED: OXYC1TAB23 PO (09:04)
[2025-02-13 12:00] VITALS: BP 120/58; TEMP 97.7; O2SAT 94
[2025-02-13] MEDS ORDERED: CLINDAMYCIN 150MG CAPSULE PO SCH (21:00)
== END 2025-02-13 13:30 | disposition home health service (06) ==
LOC: M SDC 05:59 → M RR INP 10:16 → M MS5PR 11:30
PROVIDERS: ADMIT Orthopaedic Surgery; ATTEND Orthopaedic Surgery
DX: M17.11 Unilateral primary osteoarthritis, right knee (principal); G47.30 Sleep apnea, unspecified; F43.10 Post-traumatic stress disorder, unspecified; N28.9 Disorder of kidney and ureter, unspecified; Z96.652 Presence of left artificial knee joint; Z88.0 Allergy status to penicillin; Z88.2 Allergy status to sulfonamides; Z88.4 Allergy status to anesthetic agent; Z88.1 Allergy status to other antibiotic agents; Z88.8 Allergy status to other drugs, medicaments and biological substances; Z79.899 Other long term (current) drug therapy
CPT/HCPCS: 27447; 36415; 73560; 80053; 85027; 88300; 96374; 96376; 97110; 97116; 97161; 97165; 97530; 97535; C1776; G0378; J0131; J0171; J1100; J1171; J1885; J1920; J2250; J2371; J2405; J2795; J3010; J3370; S2900

== ENCOUNTER → 2025-02-22 | Outpatient (CLI) | payer MEDICARE, OTHER ==
[~2025-02-22] MED LIST changes: +CLIN150C17 PO; +OXYC1TAB23 PO; +SENN-186 PO
== END ==
LOC: M SOG 06:52
PROVIDERS: ATTEND Orthopaedic Surgery
DX: M17.11 Unilateral primary osteoarthritis, right knee (principal); Z96.651 Presence of right artificial knee joint

== ENCOUNTER → 2025-02-28 | Outpatient (CLI) | payer MEDICARE, OTHER ==
[~2025-02-28] MED LIST changes: +D31000CA6 PO; -VITA-183 PO
== END ==
LOC: M SOG 10:10
PROVIDERS: ATTEND Orthopaedic Surgery
DX: Z96.651 Presence of right artificial knee joint (principal)

== ENCOUNTER → 2025-06-07 | Outpatient (CLI) | payer MEDICARE, OTHER | LOC: M SOG 06:58 | PROVIDERS: ATTEND Orthopaedic Surgery | DX: Z96.651 Presence of right artificial knee joint (principal); Z47.1 Aftercare following joint replacement surgery ==

== ENCOUNTER → 2025-06-27 | Outpatient (REF) | payer MEDICARE, OTHER ==
[2025-06-27 14:33] LABS: PLATELET COUNT, AUTOMATED 184 10^3/uL (150-450)
[2025-06-27 14:36] LABS: ALT/SGPT 29.0 U/L (7.0-40); AST/SGOT 30.0 U/L (<34); CALCIUM LEVEL 9.5 MG/DL (8.3-10.6); CARBON DIOXIDE LEVEL 34.0 MMOL/L (20-31); CHLORIDE LEVEL 105.0 MMOL/L (98-107); CHOLESTEROL LEVEL 140.0 MG/DL (<200); CHOLESTEROL RISK RATIO 1.85 (<5); CREATININE FOR GFR 1.22 MG/DL (0.55-1.30); GLOMERULAR FILTRATION RATE 46.6 (>39); LDL CHOLESTEROL 51.9 MG/DL (<100); NON-HDL-C 64.5 MG/DL; POTASSIUM SERUM 4.3 MMOL/L (3.5-5.1); SODIUM LEVEL 149.0 MMOL/L (136-145); TRIGLYCERIDES LEVEL 63.0 MG/DL (<150)
== END ==
LOC: M SFHCADAM 07:27
PROVIDERS: ATTEND Physician Assistant
DX: J40 Bronchitis, not specified as acute or chronic (principal); N18.31 Chronic kidney disease, stage 3a; E66.9 Obesity, unspecified; I87.2 Venous insufficiency (chronic) (peripheral); E78.00 Pure hypercholesterolemia, unspecified; I12.9 Hypertensive chronic kidney disease with stage 1 through stage 4 chronic kidney disease, or unspecified chronic kidney disease; R60.9 Edema, unspecified; K58.9 Irritable bowel syndrome, unspecified; K21.9 Gastro-esophageal reflux disease without esophagitis; Z68.30 Body mass index [BMI] 30.0-30.9, adult